=== PATIENT | female | born 1980 | race Caucasian/White ===

== ENCOUNTER 2022-08-22 12:04 | Emergency (ER) | payer OTHER ==
--- OUTSIDE RECORDS SUMMARY | 2022-08-22 12:07 | XMS REPORT | Continuity of Care Document ---
:1980 Author Organization [facility] t Address [address] [place] [place] [address] Care Team Providers Name Role Phone SHARATH Attending Clinician Unavailable DR LOUISE GODDARD Attending Clinician Unavailable SHARATH Admitting Clinician Unavailable DR LOUISE GODDARD Admitting Clinician Unavailable Problems This patient has no known problems. Allergies, Adverse Reactions, Alerts This patient has no known allergies or adverse reactions. Medications This patient has no known medications. Procedures This patient has no known procedures. Encounters Start End Encounter Admission Attending Care Care Encounter Source Date/Time Date/Time Type Type Clinicians Facility Department ID 2021-07-21 2021-07-21 Outpatient SANDY LARA [facility] [address] 10:20:00 10:20:00 [id number] 2020-06-07 2020-06-07 Outpatient SANDY LARA [facility] [address] 02:24:00 02:24:00 [facility] [id number] 2019-03-25 2019-03-25 Outpatient E LOUISE GODDARD [facility] [id number] 18:20:00 22:00:00 [facility] Results Test Description Test Time Test Comments Results Result [facility] e Comments CT ABDOMEN AND 2019-03-25 CT abdomen and pelvis PELVIS WITH 21:14:00 with contrastLocation CONTRAST *OW* Code: [id number] HISTORY: [id number]: Left upper quadrant painCOMPARISON: NoneTechnique: Helical CT of the abdomen and pelvis was performed followingthe administration of intravenous contrast. Thin section axial, [place] coronal images were obtained. Automatic exposure control was utilized. FINDINGS:The lung bases are clear. The liver, adrenal glands, kidneys, pancreas, and spleen are unremarkable withthe exception of likely steatosis.The gallbladder is unremarkableThe unopacified loops of bowel demonstrate no evidence of obstruction. There isdiffuse diverticulosis. The appendix is likely surgically absent.. There is nofree peritoneal air or fluid. There is a likely small subcentimeter rightadnexal cyst.No aggressive osseous lesions are seen. IMPRESSION: No definite CT evidence of an etiology of patient's painAdditional findings above TROPONIN I i-STAT OW 2019-03-25 19:29:00 Test Item Value Reference Range Interpretation Comme nts TROPONIN I (test code = A84) 0.000 ng/mL 0.000-0.045 CHEM8+ i-STAT OW2019-03-25 19:17:00 Test Item Value Reference Range Interpretation Comments SODIUM (test code = CORNEL) 138 mmol/L 138-146 POTASSIUM (test code = KI) 4.0 mmol/L 3.5-4.9 CHLORIDE (test code = CLI) 103 mmol/L 98-109 CA IONIZED (test code = ICAI) 1.16 mmol/L 1.12-1.32 GLUCOSE (test code = GLUI) 87 mg/dL 75-100 TCO2 (test code = TCO2) 24 mmol/L 24-29 BUN (test code = BUN1) 8 mg/dL 8-26 CREATININE (test code = CREAI) 0.6 mg/dL 0.6-1.3 ANION GAP (test code = GANG) 16.0 mmol/L HGB (test code = MHB) 12.2 g/dL 12.0-17.0 HCT (test code = MHCT) 36.0 % 38.0-51.0 L PROTHROMBIN TIME i-STAT OW2019-03-25 19:15:00 Test Item Value Reference Range Interpretation Comments PT (test code = 11.5 s 10.0-13.0 PT1) INR (test code = 1.0 INR) INRH (test code = SUGGESTED THERAPEUTIC INRH) RANGE FOR INR: 2.5 - 3.5 For Patients with Prosthetic Valves or Patients with recurrent Thromboembolic Events 2.0 - 3.0 For Most Other Applications DRUGS OF ABUSE*OW*2019-03-25 19:11:00 Test Item Value Reference Range Interpretation Comments DRUG SCRN (test code URINE DRUG SCREEN = HDOA) This is an unconfirmed screening result and should not be used for non-medical purposes PHENCYCLID (test Negative NEGATIVE code = GPCP) BENZODIAZE (test Negative NEGATIVE code = GBZO) COCAINE (test code = Negative NEGATIVE GCOC) AMPHETAMIN (test Positive NEGATIVE A code = GAMP) THC (test code = Negative NEGATIVE GTHC) OPIATES (test code = Negative NEGATIVE HOPE) BARBITURAT (test Negative NEGATIVE code = GBAR) TCA (test code = Negative NEGATIVE GTCA) DOAH (test code = URINE DRUG DOAH) SCREEN CUT OFF VALUES Amphetamines 1000 ng/mL Barbituates 300 ng/mL Benzodiazepines 300 ng/mL Cocaine 300 ng/mL Opiates 300 ng/mL Phencyclidine 25 ng/mL THC 50 ng/mL Tricyclic Antidepressants 1000 ng/mL URINE OW2019-03-25 19:11:00 Test Item Value Reference Range Interpretation Comments PREG UR (test code = PGU) NEGATIVE NEGATIVE CBC (INCLUDES AUTOMATED DIFFERENTIAL) *2019-03-25 19:02:00 Test Item Value Reference Range Interpretation Comments WBC (test code = WBC) 14.4 10\S\3/uL 4.5-11.0 H RBC (test code = RBC) 5.07 10\S\6/uL 4.30-5.70 HGB (test code = HBG) 13.2 g/dL 12.0-15.5 HCT (test code = HCT) 42.5 % 35.0-44.0 MCV (test code = MCV) 83.9 fL 81.0-99.0 MCH (test code = MCH) 26.0 pg 27.0-31.0 L MCHC (test code = MCHC) 31.1 g/dL 32.0-36.0 L RDW (test code = RDW) 15.3 % 11.5-14.5 H PLT (test code = PLT) 169 10\S\3/uL 130-400 MPV (test code = OMPV) 9.0 fL 6.2-10.2 NEUTROP # (test code = NE#) 8.2 10\S\3/uL 1.6-8.0 H LYMPH # (test code = LY#) 5.0 10\S\3/uL 1.1-3.5 H MID # (test code = GMID#) 1.2 10\S\3/uL 0.0-1.1 H GRA % (test code = GRA%) 57.2 % 35.0-73.0 LYMPH % (test code = GLY%) 34.4 % 20.0-55.0 MID % (test code = GMID%) 8.4 % 0.0-10.0 URINALYSIS W/O MICROSCOPICOW2019-03-25 19:01:00 Test Item Value Reference Range Interpretation Comments COLOR (test code = PALE YELLOW YELLOW A COLU) CLARITY (test code = SLT HAZY CLEAR A CLA) GLUCOSE UR (test Negative NEGATIVE code = UA GLUCOSE) BILI UR (test code = Negative NEGATIVE BILE) KETONES UR (test Negative NEGATIVE code = MARINE) SP GRAVITY (test 1.025 1.005-1.030 code = SPGR) PH UR (test code = 5.0 4.5-8.0 PH) PROTEIN UR (test Negative NEGATIVE code = PU) NITRITE UR (test Negative NEGATIVE code = NITRITE) UROBIL UR (test code 0.2 E.U./dL = GUROQ) UROBIL UR (test code UROBILINOGEN = GUROQC) REFERENCE RANGE 0.2 - 1.0 EU/dL BLOOD UR (test code Trace-lysed NEGATIVE = UA BLOOD) LEUK ES UR (test Negative NEGATIVE code = LEUK)
[2022-08-22] MEDS ORDERED: NA CHLORIDE 0.9% 1,000 ML ONE (12:34)
[2022-08-22] MEDS ORDERED: ONDANSETRON 4 MG/2 ML VIAL ONE (12:34)
[2022-08-22 12:50] LABS: Urine Blood Negative (Negative); Urine Glucose Negative (Negative); Urine Protein 1+ (Negative); Urine Specific Gravity >=1.030 (1.005-1.030); Urine pH 5.5 (5.0-7.0)
[2022-08-22 13:19] LABS: Absolute Lymphocytes (CBC) 1.3 K/uL (0.7-4.9); Hematocrit 39.5 % (36.0-45.0); Lymphocytes % 14.5 % (15.3-44.8); MCV 79.6 fL (80-100); MPV 8.8 fL (7.6-11.3); RBC Red Blood Cell Count 4.96 M/uL (3.86-4.86)
[2022-08-22 13:36] LABS: Albumin 3.2 g/dL (3.4-5.0); Bilirubin Total 0.5 mg/dL (0.2-1.0); Potassium 3.7 mmol/L (3.5-5.1); Protein, Total 7.5 g/dL (6.4-8.2)
--- NOTE | 2022-08-22 15:03 | ER ---
Nurse's Notes [facility] Name: Antonio Montes Age: 42 yrs Sex: Female : 1980 Arrival Date: 08/22/2022 Time: 12:09 Bed 23 Private MD: Diagnosis: Fever, unspecified;Diarrhea, unspecified;Vomiting Presentation: 08/22 12:15 Chief complaint: Patient states: fever x5 days; has seen Dr. Colung[place] in [facility] (PCP) [facility] X2 IN THE LAST 5 DAYS AND WAS SWABBED FOR covid/flu TWICE IN THE LAST 5 DAYS - HAS COME BACK NEGATIVE ON BOTH ACCOUNTS. HEIDY STATES SHE WASN'T SURE WHAT IT IS SO GAVE HER LEVOQUIN YESTERDAY AND GAVE HER AN ORDER FOR OUTPATIENT LABS TO BE DONE TODAY AND INSTEAD OF HAVING THOSE DONE SHE CAME HERE. PATIENT AND STATES SHE GETS THE CHILLS/SHAKES SO BAD ITS IF SHE IS HAVING A SEIZURE BUT SHE IS COMPLETELY MENTALLY WITH IT. Coronavirus screen: Vaccine status: Patient reports being unvaccinated. Client denies travel out of the [place] in the last 14 days. Ebola Screen: Patient negative for fever greater than or equal to 101.5 degrees Fahrenheit, and additional compatible Ebola Virus Disease symptoms Patient denies exposure to infectious person. Patient denies travel to an Ebola-affected area in the 21 days before illness onset. Initial Sepsis Screen: Does the patient meet any 2 criteria? HR > 90 bpm. Yes Does the patient have a suspected source of infection? Yes: Other: UNKNOWN. Risk Assessment: Do you want to hurt yourself or someone else? Patient reports no desire to harm self or others. 12:15 Method Of Arrival: Ambulatory [facility] 12:15 Acuity: TISHA 3 5 13:15 Onset of symptoms was August 17, 2022. em6 Triage Assessment: 12:20 General: Appears uncomfortable, well groomed, well developed, Behavior is calm, jh5 cooperative, appropriate for age. Pain: Denies pain. GI: Reports diarrhea, nausea, vomiting. 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 - Social history:: Smoking status: Patient denies any tobacco usage or history of. Screenin:14 [facility] ED Fall Risk Assessment (Adult) History of falling in the last 3 months, em6 including since admission No falls in past 3 months (0 pts) Confusion or Disorientation No (0 pts) Intoxicated or Sedated No (0 pts) Impaired Gait No (0 pts) Mobility Assist Device Used No (0 pt) Altered Elimination No (0 pt) Score/Fall Risk Level 0 - 2 = Low Risk Oriented to surroundings, Maintained a safe environment, Educated pt \T\ family on fall prevention, incl call for assistance when getting out of bed, Assessed \T\ reinforced patient's understanding of fall precautions, Hourly rounding (assess needs \T\ fall precautionary measures) done. 13:15 Abuse screen: Denies threats or abuse. Nutritional screening: No deficits noted. em6 Tuberculosis screening: No symptoms or risk factors identified. Fall Risk Total Hill Fall Scale indicates No Risk (0-24 pts). Assessment: 13:14 General: Appears in no apparent distress. Behavior is cooperative. Pain: Denies pain. em6 Neuro: Yates Agitation-Sedation Scale (RASS): 0 - Alert and Calm. Cardiovascular: Patient's skin is warm and dry. Respiratory: Reports cough that is non-productive, Airway is patent Respiratory effort is even, unlabored, Respiratory pattern is regular, symmetrical, Breath sounds are clear bilaterally. GI: Abdomen is non-distended, Bowel sounds present X 4 quads. Abd is soft and non tender X 4 quads. Reports diarrhea, intolerance of fluids, intolerance of food, nausea, vomiting. : No signs and/or symptoms were reported regarding the genitourinary system. EENT: No signs and/or symptoms were reported regarding the EENT system. Derm: No signs and/or symptoms reported regarding the dermatologic system. Musculoskeletal: Circulation, motion, and sensation intact. Range of motion: intact in all extremities. 14:19 Reassessment: Patient appears in no apparent distress at this time. No changes from em6 previously documented assessment. Patient and/or family updated on plan of care and expected duration. Pain level reassessed. Patient is alert, oriented x 3, equal unlabored respirations, skin warm/dry/pink. Vital Signs: 12:15 BP 127 / 82; Pulse 108; Resp 18; Temp 98.8; Pulse Ox 99% ; Weight 96.62 kg; Height 5 [facility] ft. 3 in. (160.02 cm); Pain 0/10; 13:15 BP 113 / 80; Pulse 85; Resp 18; Pulse Ox 99% on R/A; em6 14:00 BP 115 / 84; Pulse 89; Resp 18; Pulse Ox 98% on R/A; em6 15:10 BP 104 / 86; Pulse 84; Resp 18; Pulse Ox 99% ; em6 12:15 Body Mass Index 37.73 (96.62 kg, 160.02 cm) [facility] ED Course: 12:09 Patient arrived in ED. as 12:13 Von Murillo PA is PHCP. [facility] 12:13 Geovani Agrawal MD is Attending Physician. [facility] 12:19 Triage completed. [facility] 12:20 Arm band placed on right wrist. [facility] 12:30 Gabriella Alvarado, RN is Primary Nurse. em6 13:13 Strep Sent. em6 13:13 [place] Screen Profile Sent. em6 13:13 Blood Culture Adult (2) Sent. em6 13:13 Lactate w/ 2H reflex if indic. Sent. em6 13:13 Inserted saline lock: 20 gauge in right antecubital area, using aseptic technique. em6 Blood collected. 13:15 Placed in gown. Bed in low position. Call light in reach. Side rails up X 1. Pulse ox em6 on. NIBP on. Warm blanket given. 13:58 Blood Culture Adult (2) Sent. em1 13:58 Second set of blood cultures drawn by ga. em1 15:10 No provider procedures requiring assistance completed. IV discontinued, intact, em6 bleeding controlled, No redness/swelling at site. Pressure dressing applied. Administered Medications: 13:13 Drug: NS 0.9% 1000 ml Route: IV; Rate: 1 bolus; Site: right antecubital; em6 14:56 Follow up: Response: No adverse reaction; IV Status: Completed infusion; IV Intake: em6 1000ml 13:13 Drug: Zofran (Ondansetron) 4 mg Route: IVP; Site: right antecubital; em6 14:00 Follow up: Response: No adverse reaction em6 Medication: 15:11 VIS not applicable for this client. em6 Intake: 14:56 IV: 1000ml; Total: 1000ml. em6 Outcome: 15:02 Discharge ordered by . yana 15:11 Discharged to home ambulatory, with significant other. em6 15:11 Condition: stable 15:11 Discharge instructions given to patient, significant other, Instructed on discharge instructions, follow up and referral plans. medication usage, Demonstrated understanding of instructions, follow-up care, medications, Prescriptions given X 1. 15:11 Patient left the ED. em6 Signatures: Von Murillo PA PA jmm Martinez, Amelia as Martinez, Eric em1 Agatha Joshua, RN RN jh5 Gabriella Alvarado, RN RN em6 Corrections: (The following items were deleted from the chart) 16:48 13:14 Humpty Dumpty Scale Fall Assessment Tool (age< 18yrs) Gender Female (1 pt) em6 Cognitive Impairments Oriented to own ability (1 pt) Medication Usage Other medications/ None (1 pt) Fall Risk Score/ Level Low Fall Risk: </= 11 points Oriented to surroundings, Maintained a safe environment: Age specific bed with railing, Bed in low position\T\ wheels locked, Assess need for siderail use, Locks on, Rm \T\ paths clutter \T\ obstacle free, Proper lighting, Call light, personal item w/in reach, Alarms as needed, Educated pt \T\ family on fall prevention, incl. call for assistance when getting out of bed, Assessed \T\ reinforced patient's understanding of fall precautions, Hourly rounding (assess needs \T\ fall precautionary measures) em6
--- NOTE | 2022-08-22 15:03 | EDPHYS ---
Physician Documentation [facility] Name: Antonio Montes Age: 42 yrs Sex: Female : 1980 Arrival Date: 08/22/2022 Time: 12:09 Bed 23 Private MD: ED Physician Geovani Agrawal HPI: 08/22 12:25 This 42 yrs old Female presents to ER via Ambulatory with complaints of Fever, jmm Nausea/Vomiting/Diarrhea. 12:25 Onset: The symptoms/episode began/occurred gradually, 5 day(s) ago. This is a 42 year jmm old female with a history of hypothyroidism that presents to the ED with complaints of fever beginning approx 5 days ago with multiple episodes of vomiting and diarrhea. Denies abdominal pain, chest pain, sob, neck stiffness. Patient states she also has a headache which is consistent with previous headaches. Patient had an outpatient covid and flu swab which were negative. . 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 - Social history:: Smoking status: Patient denies any tobacco usage or history of. ROS: 12:25 Constitutional: Positive for body aches, chills, fever. jmm 12:25 Respiratory: Negative for cough, shortness of breath. 12:25 Abdomen/GI: Positive for nausea and vomiting, diarrhea, Negative for abdominal pain. 12:25 Neuro: Positive for headache. 12:25 All other systems are negative. Exam: 12:25 Constitutional: This is a well developed, well nourished patient who is awake, alert, jmm and in no acute distress. Head/Face: atraumatic. Eyes: EOMI, no conjunctival erythema appreciated ENT: Moist Mucus Membranes Neck: Trachea midline, Supple Chest/axilla: Normal chest wall appearance and motion. Cardiovascular: Regular rate and rhythm. No edema appreciated Respiratory: Normal respirations, no respiratory distress appreciated Abdomen/GI: Non distended Back: Normal ROM Skin: General appearance color normal MS/ Extremity: Moves all extremities, no obvious deformities appreciated, no edema noted to the lower extremities Neuro: Awake and alert Psych: Behavior is normal, Mood is normal, Patient is cooperative and pleasant Vital Signs: 12:15 BP 127 / 82; Pulse 108; Resp 18; Temp 98.8; Pulse Ox 99% ; Weight 96.62 kg; Height 5 5 ft. 3 in. (160.02 cm); Pain 0/10; 13:15 BP 113 / 80; Pulse 85; Resp 18; Pulse Ox 99% on R/A; em6 14:00 BP 115 / 84; Pulse 89; Resp 18; Pulse Ox 98% on R/A; em6 15:10 BP 104 / 86; Pulse 84; Resp 18; Pulse Ox 99% ; em6 12:15 Body Mass Index 37.73 (96.62 kg, 160.02 cm) [facility] MDM: 12:33 Patient medically screened. eric 15:00 Data reviewed: vital signs, nurses notes. Counseling: I had a detailed discussion with yana the patient and/or guardian regarding: the historical points, exam findings, and any diagnostic results supporting the discharge/admit diagnosis, lab results, the need for outpatient follow up, to return to the emergency department if symptoms worsen or persist or if there are any questions or concerns that arise at home. 08/22 12:25 Order name: CBC with Diff; Complete Time: 13:27 [facility] 08/22 12:25 Order name: CMP; Complete Time: 13:36 [facility] 08/22 12:25 Order name: Lipase; Complete Time: 13:36 [facility] 08/22 12:46 Order name: Lactate w/ 2H reflex if indic.; Complete Time: 13:36 [facility] 08/22 12:46 Order name: Blood Culture Adult (2) [facility] 08/22 12:46 Order name: [place] Screen Profile; Complete Time: 13:29 [facility] 08/22 12:25 Order name: IV Saline Lock; Complete Time: 13:13 [facility] 08/22 12:25 Order name: Labs collected and sent; Complete Time: 13:13 [facility] 08/22 12:46 Order name: Strep; Complete Time: 13:29 [facility] 08/22 12:50 Order name: Urine --Ancillary (enter results); Complete Time: 17:57 bd 08/22 12:50 Order name: Urine Dipstick-Ancillary; Complete Time: 12:52 [facility] 08/22 13:30 Order name: Throat Culture [facility] 08/22 12:25 Order name: Urine Dipstick-Ancillary (obtain specimen); Complete Time: 13:13 [facility] 08/22 12:25 Order name: Urine Test (obtain specimen); Complete Time: 13:13 [facility] Administered Medications: 13:13 Drug: NS 0.9% 1000 ml Route: IV; Rate: 1 bolus; Site: right antecubital; em6 14:56 Follow up: Response: No adverse reaction; IV Status: Completed infusion; IV Intake: em6 1000ml 13:13 Drug: Zofran (Ondansetron) 4 mg Route: IVP; Site: right antecubital; em6 14:00 Follow up: Response: No adverse reaction em6 Disposition Summary: 08/22/22 15:02 Discharge Ordered Location: Home [facility] Condition: Stable jm Diagnosis - Fever, unspecified jmm - Diarrhea, unspecified jmm - Vomiting jmm Followup: [facility] - With: Private Physician - When: 2 - 3 days - Reason: Recheck today's complaints, Continuance of care, Re-evaluation by your physician Discharge Instructions: - Discharge Summary Sheet jmm - Diarrhea, Adult jmm - Vomiting, Adult jmm - Fever, Adult jmm Forms: - Medication Reconciliation Form [facility] - Thank You Letter [facility] - Antibiotic Education [facility] - Prescription Opioid Use [facility] Prescriptions: - ondansetron 4 mg Oral tablet,disintegrating - take 1 tablet by ORAL route every 4-6 hours As needed; 20 tablet; Refills: 0, [facility] Product Selection Permitted Signatures: Dispatcher [employer] EDGeovani Gutierrez MD MD cha Mickail, Joel, PA PA [facility] Agatha Joshua, RN RN jh5 Gabriella Alvarado RN RN em6
[2022-08-22 15:07] LABS: Urine Specific Gravity/Preg >1.030 (1.005-1.030)
[2022-08-22 15:25] VITALS: TEMP 98.8
[2022-08-22 15:37] VITALS: BP 104/86; O2SAT 99
== END 2022-08-22 15:11 | disposition home or self-care (01) ==
LOC: ER 12:04
DX: R50.9 Fever, unspecified (principal); R19.7 Diarrhea, unspecified; R11.10 Vomiting, unspecified
CPT/HCPCS: 87040 ×2; 87070; 85025; 36415; 86308; 81025; 87081; 83605; 81003; 83690; 80053; J7030; J2405